=== PATIENT | female | born 1975 | race Caucasian/White ===

== ENCOUNTER 2025-03-30 00:45 | Day surgery (SDC) | payer BC, MEDICAID, SELFPAY ==
--- NOTE | 2025-03-23 17:30 | PC.NURSE ---
Report to the Outpatient Waiting Room, entrance under the green pavilion located off [facility], at time 0630 on date 03/30/25. Planned Procedure Time: 0830.? Time changes happen often and if your time is changed the preop area will call you the afternoon before. - You and your visitor will be asked to self-screen and do not enter if you have any COVID symptoms. Please call surgeon if you need to reschedule. - A mask is optional within the hospital at this time. Patients may have clear liquids (water, carbonated beverages, clear teas, apple juice) until 3 hours prior to surgery with a maximum of 20 ounces. 0530 - No food from midnight until time of surgery and no smoking, or chewing tobacco (or any form of nicotine). No chewing gum, candy or mints. - Infants may have breast milk until 4 hours before surgery, infant formula 6 hours prior to surgery. - Children will be allowed to drink immediately following surgery.? If applicable, please bring a bottle or sippy cup to assist with drinking. Juice, water, soda, and popsicles are readily available.? For infants on formula, please bring formula the day of surgery.? Pacifiers are allowed. Take only the following medications with a SIP of water on the morning of surgery: NONE DO NOT STOP ANY OF YOUR OTHER PRESCRIPTION MEDICATIONS PRIOR TO SURGERY EXCEPT THE FOLLOWING Hold all vitamins and supplements for 3 days per anesthesiologist. Medications to discontinue per physician ASK DR. TURNER REGARDING WHEN TO STOP MELOXICAM Date to take last dose 03/27/25- LAST DAY FOR IRON SUPPLEMENT Please no make-up, nail german, hairspray, perfume, deodorant, or body powder the day of surgery.? No jewelry (including any body piercings) or valuables the day of surgery, leave them at home.? Please take a shower or bath the night before, or the morning of, surgery with an antibacterial soap.? Wear comfortable, loose fitting clothing.? Children are encouraged to wear pajamas. - Jewelry must be removed prior to entering the operating room.? Rings and piercings that are not removed may be cut off. - The hospital will not accept responsibility for valuables.? - Please leave all valuables, including medications, at home the day of surgery. If you are going home after surgery, a licensed pharmacy delivery driver must drive you home.? - NO public transportation without another adult if you receive anesthesia. - We recommend that an adult stay with you for 24 hours following discharge. - We also recommend that you do not drive, make important decision, drink alcoholic beverages, or take any drugs that were not prescribed by your health care provider for at least 24 hours after your discharge time. For Pediatric surgeries, we recommend two adults accompany the child home. Follow any additional instructions given to you from your surgeon. Telephone instructions given to Patient- Janie Anaya and asked if any additional questions and then verbalized understanding. Patient advised to call surgeon office or pre surgery nurse liaison [phone] if any additional questions.
[2025-03-23 17:39] VITALS: BMI 22.8
[2025-03-30] VITALS (10 sets, daily range): BP systolic 90–133; BP diastolic 51–79; PULSE 54–85; RESP 12–16; TEMP 36.4–36.8; O2SAT 97–100
--- NOTE | 2025-03-30 06:30 | ECG_ITS ---
Test Date: 2025-03-30 07:20:31 Measurements Intervals [place] Rate: 52 P: 48 [place]: 142 QRS: 1 QRSD: 84 T: 68 QT: 484 QTc: 453 Interpretive Statements SINUS BRADYCARDIA LOW QRS VOLTAGE IN PRECORDIAL LEADS [QRS DEFLECTION < 1.0 mV IN CHEST LEADS] ABNORMAL ECG No previous ECG available for comparison Electronically Signed On 03-31-2025 15:35:12 CDT by Ed Aaron M.D.
--- NOTE | 2025-03-30 06:51 | P.PNAN_ITS ---
Anes - Initial Pre Proc Eval Procedure: Operation Date: 03/30/25 08:30 Proposed Procedures p Robotic Assisted Hysterectomy with Bilateral Salpingectomy - Alonso Luna MD Date/Time: 03/30/25 06:51 Surgeon: Alonso Luna MD Pre Op Diagnosis: intramural submucosa /subserous leiomyoma of uteru Patient Data Age: 50 Gender: F Height: 1.57 m Weight: 56.8 kg Allergies Allergy/AdvReac Type Severity Reaction Status Date / Time naproxen Allergy Unknown Difficulty Verified 03/23/25 17:14 Breathing Home Medications ?Medication ?Instructions ?Recorded ?Confirmed ?Type ferrous sulfate 325 mg (65 mg 325 mg PO HS 03/23/25 History iron) tablet (FeroSul) meloxicam 7.5 mg tablet 7.5 mg PO BID PRN pain 03/2303/23/25 History phentermine 37.5 mg tablet 37.5 mg PO DAILY 03/23/25 0 03/23/25 History valacyclovir 1 gram tablet 1,000 mg PO DAILY 03/23/25 03/23/25 History Patient hx anesthesia problems: none Family hx anesthesia problems: none Results Review: All pre-operative results and documents have been reviewed as part of the pre- operative evaluation. [facility] Past Medical History Medical History (Updated 10/23/23 @ 14:48 by ELVIRA Groves) Anemia GERD (gastroesophageal reflux disease) Endometriosis Arthritis Surgical History Surgical History (Updated 10/23/23 @ 14:48 by ELVIRA Groves) History of carpal tunnel release (~2017) right hand History of hysteroscopy (~2003) FIBROIDS D&C History of hysteroscopy (11/01/04) hysteroscopy/D&C-benign History of hysteroscopy (05/18/09) hysteroscopy D&C laparoscopy-benign H/O tubal ligation (04/20/14) Hx of cholecystectomy (05/15/20) Family History Family History (Updated 10/23/23 @ 14:51 by ELVIRA Groves) Grandparent Macular degeneration maternal grandparents Osteoporosis maternal grandmother Other Breast cancer paternal aunt Lung cancer paternal aunt Father Primary pancreatic cancer Social History Social History Smoking packs per day: 1.5 Smoking cigarettes per day: 30.0 Years smoked: 25 Smoking pack-years: 37.50 Smoking status: Former smoker Tobacco type: cigarettes Alcohol intake: current Spiritual care concerns: No Anes - Eval Final PreProcedure Day of Procedure 03/30/25 06:51 Patient weight: normal Heart: regular rate and rhythm Lungs: clear to auscultation Airway: Mallampati scale class II Neurological: alert and oriented Last oral intake: >/= 8 hours ASA classification: II Emergent: no Anesthetic plan: proceed Anesthesia type and monitoring: general ETT and standard monitoring Results Review: All pre-operative results and documents have been reviewed as part of the pre- operative evaluation. Informed Consent: The patient's anesthetic plan and its attendant risks and benefits were discussed with the patient/family/POA. Questions were solicited and answers provided to the satisfaction of the patient/family/POA.
[2025-03-30 07:05] LABS: Hematocrit 28.3 % (37.0-47.0); Hemoglobin 8.1 g/dL (12.0-15.0)
[2025-03-30] MEDS: ACETAMINOPHEN 500 MG TABLET 1000 MG PO ×4 (07:10→23:44)
[2025-03-30] MEDS: LACTATED RINGERS 1,000 ML 30 ML IV CONT ×2 (07:10→10:41)
--- NOTE | 2025-03-30 08:12 | WPDHPUPDATE1 ---
History and Physical Update Update Date/Time: 03/30/25 08:12 History and Physical has been reviewed, including an updated exam of the patient. There are NO changes in the patient's condition. Risks, benefits, and alternatives have been discussed and questions answered. Patient agrees to proceed with procedure.
[2025-03-30] MEDS: ceFAZolin 2 GM in SODIUM CHLORIDE 0.9% IV 50 ML 100 ML IVPB (08:29)
--- NOTE | 2025-03-30 10:03 | S_PTH ---
PATIENT: Janie Anaya LOC: [facility] U#:[id number] AGE/SX: 50/F ROOM: RE03/30/[address]: Alonso Luna MD : 1975 BED: DIS: 03/31/2025 SPEC #: [id number] RECD: 03/30/25 10:36 STATUS: ERIC REQ #: [id number] THALIA: 03/30/25 10:[address]: Alonso Luna DEPT: [facility] Surgical RECD BY: Candice Tom ENTERED: 03/30/25 10:37 SP TYPE: Surgical OTHR DR: UNKNOWN,DOCTOR Tissues: A - Uterus Procedures: Hematoxylin and Eosin Stain Gross and Microscopic Level 5
--- NOTE | 2025-03-30 10:38 | W.PM.PROC2 ---
Procedure Note - Detailed Date of Procedure 03/30/25 Pre-op Diagnosis intramural submucosa /subserous leiomyoma of uteru Post-op Diagnosis Same Procedure Performed Robot assisted Total hysterectomy with bilateral salpingectomy. Surgeon Alonso Luna MD Anesthesia General Indications heavy vaginal bleeding, pelvic pain Findings normal-appearing uterus, ovaries, and left tube, right tube was partially resected. Some scarring over the posterior cul-de-sac peritoneum. Description of Procedure This patient was taken to the operating room. She was prepped and draped in the dorsal lithotomy position after induction of general anesthesia. The uterine manipulator and Sivan cup were placed. This was done with a speculum and tenaculum. The speculum was placed. The cervix was grasped with a tenaculum. The stay sutures were placed at 3 and 9:00 a.m.. The stay sutures of 0 Vicryl were tied to the appropriately Size scope after it was slipped around the cervix.. The tip of the SILVINO manipulator was placed in the intrauterine cavity. The cup was slid into place around the cervix and into the fornices. It was locked into place. The sutures were then wrapped around the handle and tied under tension. A 8 mm skin incision was made in the left upper quadrant the abdomen. a 5 mm Visiport trocar was inserted into abdominal cavity and pneumoperitoneum was achieved. A 8 mm supraumbilical incision was made and a 8 mm trocar was inserted into the intrauterine cavity under direct visualization of the scope. an 8 mm incision was made in the right upper quadrant of the abdomen and an 8 mm robotic trocar was placed the inter uterine cavity under direct visualization the scope. An 11 mm trocar was inserted in the right upper quadrant of the abdomen rectal is a cystoscope after an incision was made there as well. The robot was docked. Electronic Orientation of the robot was performed. Bilateral ureteral lysis was performed. This was done from the pelvic brim down to the uterine artery. This was done with careful dissection using sharp and blunt dissection. The fallopian tubes were removed bilaterally. The mesosalpinx around the fallopian tubes were cauterized transected with LigaSure cautery. This was done in a bilateral fashion from the ovary to the uterine cornua. The fallopian tube was transected at the uterine cornu and amputated. The tube was taken out the left lower quadrant trocar site. In a stepwise fashion along the lateral aspects of the uterus the round ligament and broad ligaments were cauterized transected down to the level of the uterine arteries. A bladder flap was created in the bladder was moved distally to the end of the cervix and over the Sivan cup. The bilateral uterine arteries were cauterized and transected. Colpotomy was then performed. In a circumferential fashion the vagina was transected using unipolar cautery. The incision was made down on the Sivan cup. The uterus and cervix were taken out through the vagina. A pneumo occluder was placed in the vagina. The vaginal cuff was closed with a 0 V lock suture in a running fashion. The pelvis was irrigated with copious amounts antibiotic irrigation. The ureters were again examined and found to be intact and flowing freely under the uterine arteries into the bladder. The bladder was intact. It was examined directly. Cystoscopy was performed after administration of methylene blue. The cystoscope was inserted. Bladder was distended with fluid. The ureteric meatus was observed bilaterally. Blue fluid was seen to egress bilaterally. The bladder was drained and the cystoscope was withdrawn. The vagina was irrigated with Betadine solution after removal of the Pneumo occluder. the trocars were removed after the robot was undocked. The skin was closed with subacute or Dermabond. The patient was taken to recovery room. She was stable condition. Sponge lap and needle counts were correct x2. Estimated Blood Loss 75 Urine Output 800 Drains Yes Packing No Pathology Yes Complications No immediate complications Condition Stable Disposition Floor
[2025-03-30] MEDS: KETOROLAC 30 MG/ML VIAL (*BKC) IV PUSH ×3 (12:18→23:45)
[2025-03-30] MEDS: DEXTROSE 5%/0.45% SOD CHL 1,000 ML 125 ML IV CONT ×2 (12:18→20:17)
[2025-03-30] MEDS: oxyCODONE HCL (*CRX) 5 MG TAB IR 10 MG PO (13:39)
[2025-03-30] MEDS: SIMETHICONE 80 MG TAB.CHEW PO ×2 (13:40→17:56)
[2025-03-30] MEDS: PHARMACIST COMMUNICATION ORDER 1 EACH XX (15:50)
[2025-03-30] MEDS: [UNRECOGNIZED DRUG - REMARK] 1 EACH XX (15:50)
[2025-03-30] MEDS: oxyCODONE HCL (*CRX) 5 MG TAB IR PO (17:56)
[2025-03-30] MEDS: DOCUSATE SODIUM 100 MG CAPSULE PO (17:56)
[2025-03-30] MEDS: FERROUS SULFATE 325 MG TABLET BY MOUTH (19:08)
[2025-03-30] MEDS: MELOXICAM 7.5 MG TABLET PO (20:45)
[2025-03-31 03:20] VITALS: BP 103/56; PULSE 68; RESP 16; TEMP 36.6; O2SAT 100
[2025-03-31] MEDS: oxyCODONE HCL (*CRX) 5 MG TAB IR 10 MG PO (03:26)
[2025-03-31] MEDS: IBUPROFEN 600 MG TABLET PO ×2 (06:07→12:28)
[2025-03-31] MEDS: ACETAMINOPHEN 500 MG TABLET 1000 MG PO ×2 (06:07→12:28)
[2025-03-31] MEDS: DOCUSATE SODIUM 100 MG CAPSULE PO (07:15)
[2025-03-31] MEDS: SIMETHICONE 80 MG TAB.CHEW PO ×2 (07:15→12:28)
[2025-03-31] MEDS: MELOXICAM 7.5 MG TABLET PO (07:16)
[2025-03-31 07:50] VITALS: BP 100/62; PULSE 62; RESP 16; TEMP 36.7; O2SAT 99
--- NOTE | 2025-03-31 10:14 | P.PNOB_ITS ---
SCALLOP CUTTER MACHINE - A/P Postoperative Procedures: Procedures Operation Date: 03/30/25 08:30 Actual Procedure Side Surgeon p Robotic Assisted Hysterectomy with Bilateral Salpingectomy Bilateral Alonso Luna MD Postoperative day: 1 Postoperative status: doing well Postoperative plan: see orders Time Spent With Patient Time: Total time spent is greater than 50% in coordination of care (as documented) at patient's floor/unit and/or counseling patient: Time with patient: less than 15 minutes SCALLOP CUTTER MACHINE- PN:Subj Post-Op Subjective Date/time seen: 03/31/25 10:14 Subjective: patient reports feeling better, patient has no complaints and pain is well controlled Exam 2 Const: General: healthy appearing, comfortable and no acute distress Resp: Auscultation: clear to auscultation bilaterally, no rales, no rhonchi and no wheezes Cardio: Rate: regular rate Heart sounds: no click, no murmurs and no rubs GI: Inspection: non-distended Auscultation: normal bowel sounds Extrem: General: normal to inspection, no pedal edema and no calf tenderness SCALLOP CUTTER MACHINE - PN: Obj Data Vital Signs Vital Signs: Vital Signs - 24 hr 03/30/25 10:41 03/30/25 10:55 03/30/25 11:05 Temperature 97.8 F Pulse Rate 70 63 Respiratory Rate 12 12 Blood Pressure 132/77 133/79 Pulse Oximetry 100 100 Oxygen Delivery Simple Face Mask Simple Face Mask Room Air Oxygen Flow Rate 8 8 03/30/25 11:10 03/30/25 11:25 03/30/25 11:33 Temperature Pulse Rate 85 68 69 Respiratory Rate 14 12 12 Blood Pressure 130/71 120/73 133/68 Pulse Oximetry 100 100 100 Oxygen Delivery Room Air Room Air Room Air Oxygen Flow Rate 03/30/25 11:45 03/30/25 16:15 03/30/25 19:12 Temperature 97.5 F L 98.2 F 98.1 F Pulse Rate 64 54 L 62 Respiratory Rate 16 16 14 Blood Pressure 119/69 96/63 L 90/51 L Pulse Oximetry 100 97 99 Oxygen Delivery Oxygen Flow Rate 03/30/25 19:12 03/30/25 23:20 03/30/25 23:20 Temperature 98.1 F Pulse Rate 76 Respiratory Rate 15 Blood Pressure 95/58 L Pulse Oximetry 100 Oxygen Delivery Room Air Room Air Oxygen Flow Rate 03/31/25 03:20 03/31/25 03:20 03/31/25 07:50 Temperature 97.8 F 98.1 F Pulse Rate 68 62 Respiratory Rate 16 16 Blood Pressure 103/56 L 100/62 Pulse Oximetry 100 99 Oxygen Delivery Room Air Oxygen Flow Rate Intake/Output Intake/Output: Intake & Output 03/28/25 03/29/25 03/30/25 03/31/25 23:59 23:59 23:59 23:59 Intake Total 1647.9 983.8 Output Total 2220 750 Balance -572.1 233.8 Meds/Results Medications: Active Medications Generic Name Dose Route Start Last Admin Trade Name Freq PRN Reason Stop Dose Admin Acetaminophen 1,000 mg 03/30/25 12:00 03/31/25 06:07 Acetaminophen 500 Mg Tablet PO 1,000 mg Q6HR KELLI Administration Docusate Sodium 100 mg 03/30/25 17:00 03/31/25 07:15 Docusate Sodium 100 Mg Capsule PO 100 mg BID KELLI Administration Ferrous Sulfate 325 mg 03/30/25 21:00 03/30/25 19:08 Ferrous Sulfate 325 Mg Tablet BY MOUTH 325 mg HS KELLI Administration Dextrose/Sodium Chloride 1,000 mls @ 125 mls/hr 03/30/25 11:36 03/31/25 03:26 Dextrose 5% Sodium Chloride 0.45% IV CONT Infused .Q8H KELLI Infusion Ibuprofen 600 mg 03/31/25 06:00 03/31/25 06:07 Ibuprofen 600 Mg Tablet PO 600 mg Q6HR KELLI Administration Meloxicam 7.5 mg 03/30/25 11:36 03/31/25 07:16 Meloxicam 7.5 Mg Tablet PO 7.5 mg BID PRN Administration Pain Naloxone HCl 0.1 mg 03/30/25 11:36 Naloxone Hcl 0.4 Mg/Ml Vial IV PUSH Q2M PRN Respiratory rate less than 10 Ondansetron HCl 4 mg 03/30/25 11:36 Ondansetron Inj 4 Mg/2 Ml Vial IV PUSH Q6H PRN Nausea And Vomiting Oxycodone HCl 5 mg 03/30/25 11:36 03/30/25 17:56 Oxycodone Hcl (*Crx) 5 Mg Tab Ir PO 5 mg Q4H PRN Administration Pain Rated 4-6 Oxycodone HCl 10 mg 03/30/25 11:36 03/31/25 03:26 Oxycodone Hcl (*Crx) 5 Mg Tab Ir PO 10 mg Q6H PRN Administration Pain Rated 7-10 Simethicone 80 mg 03/30/25 12:00 03/31/25 07:15 Simethicone 80 Mg Tab.Chew PO 80 mg TIDWM KELLI Administration Valacyclovir HCl 1,000 mg 03/31/25 09:00 03/31/25 07:15 Valacyclovir Hcl 500 Mg Tablet PO 1,000 mg DAILY KELLI Administration Labs 03/30/25 06:51
== END 2025-03-31 12:41 | disposition home or self-care (01) ==
LOC: ANHSURGERY 05:46 → ANHOB2 11:39
PROVIDERS: Anesthesiology; Visit Provider Obstetrics & Gynecology
PROC: (CPT 58571; principal; 2025-03-30 08:30)
DX: D25.1 Intramural leiomyoma of uterus (principal); N80.03 Adenomyosis of the uterus; G89.18 Other acute postprocedural pain; D64.9 Anemia, unspecified; K21.9 Gastro-esophageal reflux disease without esophagitis; N80.9 Endometriosis, unspecified; M19.90 Unspecified osteoarthritis, unspecified site; Z79.51 Long term (current) use of inhaled steroids; Z79.1 Long term (current) use of non-steroidal anti-inflammatories (NSAID); Z98.890 Other specified postprocedural states; Z98.51 Tubal ligation status; Z90.49 Acquired absence of other specified parts of digestive tract; Z87.891 Personal history of nicotine dependence; Z80.3 Family history of malignant neoplasm of breast; Z80.1 Family history of malignant neoplasm of trachea, bronchus and lung; Z80.0 Family history of malignant neoplasm of digestive organs
CPT/HCPCS: 58571; S2900; 36415; 85014; 85018; 86850; 86900; 86901; 88307; 93005; 99199; J0690; A9270; J1100; J1171; J1885; J2003; J2250; J2405; J2704; J3010; J7030; J7120; Q9968